=== PATIENT | female | born 1990 | race Caucasian/White ===

== ENCOUNTER → 2024-05-03 | Outpatient (CLI) | payer OTHER | LOC: M RAD 08:12 | PROVIDERS: ATTEND Internal Medicine Gastroenterology | DX: R12 Heartburn (principal); R11.0 Nausea ==

== ENCOUNTER 2024-05-09 10:44 | Day surgery (SDC) | payer OTHER ==
[~2024-05-09] VITALS: Ht 165.1 cm; Wt 47.6 kg
[~2024-05-09 10:44] MED LIST: ACET-907 PO; OMEP40CA5 PO; SERT25TA21 PO
[2024-05-09] MEDS ORDERED: propofoL 200 MG/20 ML VIAL As Ordered ONE (13:36)
[2024-05-09 13:39] VITALS: BP 111/68; O2SAT 98
== END 2024-05-09 13:41 | disposition home or self-care (01) ==
LOC: M OPP 10:44 → EDUNIT# 13:30 → M OPP 13:41
PROVIDERS: ATTEND Internal Medicine Gastroenterology
DX: R12 Heartburn (principal); Z91.013 Allergy to seafood; Z79.899 Other long term (current) drug therapy